=== PATIENT | male | born 1940 | race Caucasian/White ===

== ENCOUNTER 2020-07-19 01:37 | Inpatient (IN) ==
[2020-07-19] MEDS ORDERED: *HR* Atropine Sulfate 1 MG/10 ML SYRINGE IVP STA ×2 (01:56→07:33)
[2020-07-19 02:17] LABS: Basophils % 0.4 %; Eosinophils % 0.6 %; Hematocrit 44.8 % (37.5-50.1); Hemoglobin 14.3 g/dL (12.9-16.9); Immature Granulocytes % 0.1 % (0-4); Lymphocytes % 14.5 %; Mean Corpuscular HGB Conc 31.9 g/dL (31.6-35.5); Mean Corpuscular Hemoglobin 31.2 pg (28.0-33.3); Mean Corpuscular Volume 97.6 fL (83.0-100.0); Mean Platelet Volume 11.3 fL (9.4-12.4); Monocytes # 0.5 K/mcL (0.0-1.3); Monocytes % 6.3 %; Neutrophils # 5.5 K/mcL (1.6-8.9); Platelet Count 196 K/mcL (140-400); Red Blood Count 4.59 M/mcL (4.19-5.50); Red Cell Distribution Width 13.3 % (11.5-14.5); Segmented Neutrophils % 78.1 %; White Blood Count 7.1 K/mcL (4.3-11.1)
[2020-07-19 02:58] LABS: BUN/Creatinine Ratio 18 (6-26); Blood Urea Nitrogen 20 mg/dL (8-23); Calcium 8.8 mg/dL (8.6-10.3); Carbon Dioxide 24 mEq/L (23-29); Chloride 112 mEq/L (98-107); Glucose 114 mg/dL (70-105); Magnesium 2.1 mg/dL (1.6-2.6); Osmolality,Calculated 301 (280-300); Potassium 3.9 mEq/L (3.5-5.1); Sodium 144 mEq/L (136-145); Troponin I < 0.03 ng/mL (< 0.04); eGFR For African Americans > 60 (> 60); eGFR For Non-African Americans > 60 (> 60)
[2020-07-19 03:42] LABS: Adenovirus Not Detected (Not Detect); Bordetella Pertussis Not Detected (Not Detect); Chlamydophila pneumoniae Not Detected (Not Detect); Coronavirus 229E Not Detected (Not Detect); Coronavirus HKU1 Not Detected (Not Detect); Coronavirus NL63 Not Detected (Not Detect); Coronavirus OC43 Not Detected (Not Detect); Human Metapneumovirus Not Detected (Not Detect); Human Rhinovirus/Enterovirus Not Detected (Not Detect); Influenza A Subtype 2009 H1 Not Detected (Not Detect); Influenza B Not Detected (Not Detect); Mycoplasma pneumoniae Not Detected (Not Detect); Parainfluenza Virus 1 Not Detected (Not Detect); Parainfluenza Virus 2 Not Detected (Not Detect); Parainfluenza Virus 3 Not Detected (Not Detect); Parainfluenza Virus 4 Not Detected (Not Detect); Respiratory Syncytial Virus Not Detected (Not Detect); SARS-CoV-2 Not Detected (Not Detect)
[2020-07-19] MEDS ORDERED: Ondansetron ODT 4 MG TAB.RAPDIS SL PRN (05:31)
[2020-07-19] MEDS ORDERED: Naloxone 0.4 MG/ML INJ IVP PRN (05:31)
[2020-07-19] MEDS ORDERED: Perflutren Lipid Microsphere 1.3 ML in 0.9 % Sodium Chloride 8.7 ML IVP PRN (05:34)
[2020-07-19 06:07] LABS: Prothrombin Time 12.1 Seconds (9.4-12.1)
[2020-07-19 06:51] LABS: Thyroid Stimulating Hormone 5.057 mcIU/mL (0.340-5.600)
[2020-07-19] MEDS ORDERED: *HR* Atropine Sulfate 1 MG/10 ML SYRINGE ONE (07:43)
[2020-07-19 08:55] LABS: Bilirubin,Urine Negative (Negative); Blood,Urine Trace-intact (Negative); Clarity,Urine Clear (Clear); Color,Urine Yellow (Yellow); Glucose,Urine (UA) Normal (Normal); Ketones,Urine 15 mg/dL (Negative); Leukocyte Esterase,Urine Negative (Negative); Nitrite,Urine Negative (Negative); PH,Urine 5.5 pH Units (5.0-8.0); Protein,Urine 100 mg/dL (Neg-Trace); Specific Gravity,Urine >= 1.030 (1.010-1.025); Urobilinogen,Urine Normal (Normal)
[2020-07-19 09:10] LABS: Bacteria,Urine Few per hpf (None-Few); Mucus,Urine Few per lpf (None-Few); RBC,Urine 0-3 per hpf (0-3); WBC,Urine 0-3 per hpf (0-3)
[2020-07-19] MEDS: *HR* Atropine Sulfate 1 MG/10 ML SYRINGE IVP PRN ×3 (23:09→23:57)
[2020-07-20] MEDS: *HR* Atropine Sulfate 1 MG/10 ML SYRINGE IVP PRN ×3 (00:29→04:29)
[2020-07-20] MEDS ORDERED: *HR* Atropine Sulfate 1 MG/10 ML SYRINGE IVP STA (03:12)
[2020-07-20 05:15] LABS: Basophils % 0.2 %; Eosinophils % 0.2 %; Hematocrit 41.1 % (37.5-50.1); Hemoglobin 13.5 g/dL (12.9-16.9); Immature Granulocytes % 0.2 % (0-4); Lymphocytes # 0.9 K/mcL (0.6-4.6); Lymphocytes % 8.7 %; Mean Corpuscular HGB Conc 32.8 g/dL (31.6-35.5); Mean Corpuscular Hemoglobin 30.3 pg (28.0-33.3); Mean Corpuscular Volume 92.4 fL (83.0-100.0); Mean Platelet Volume 10.5 fL (9.4-12.4); Monocytes # 0.7 K/mcL (0.0-1.3); Monocytes % 6.8 %; Neutrophils # 8.5 K/mcL (1.6-8.9); Platelet Count 209 K/mcL (140-400); Red Blood Count 4.45 M/mcL (4.19-5.50); Red Cell Distribution Width 13.2 % (11.5-14.5); Segmented Neutrophils % 83.9 %; White Blood Count 10.1 K/mcL (4.3-11.1)
[2020-07-20 05:31] LABS: BUN/Creatinine Ratio 18 (6-26); Blood Urea Nitrogen 17 mg/dL (8-23); Calcium 8.5 mg/dL (8.6-10.3); Carbon Dioxide 23 mEq/L (23-29); Chloride 111 mEq/L (98-107); Cholesterol 157 mg/dL (< 200); Glucose 133 mg/dL (70-105); HDL Cholesterol 39 mg/dL (40-59); LDL Cholesterol,Calculated 100 mg/dL (< 100); Magnesium 1.9 mg/dL (1.6-2.6); Osmolality,Calculated 295 (280-300); Phosphorous 2.8 mg/dL (2.7-4.5); Potassium 3.9 mEq/L (3.5-5.1); Sodium 141 mEq/L (136-145); Triglycerides 90 mg/dL (< 150); eGFR For African Americans > 60 (> 60); eGFR For Non-African Americans > 60 (> 60)
[2020-07-20] MEDS ORDERED: *HR* Midazolam HCl 2 MG/2 ML VIAL ONE (08:58)
[2020-07-20] MEDS ORDERED: *HR* FentaNYL (PF) 100 MCG/2 ML VIAL ONE (08:58)
[2020-07-20] MEDS ORDERED: 0.9 % Sodium Chloride 500 ML ONE (08:59)
[2020-07-20] MEDS ORDERED: 0.9 % Sodium Chloride 1,000 ML ONE (10:20)
[2020-07-20] MEDS ORDERED: *HR* Midazolam HCl 2 MG/2 ML VIAL IVP PRN (11:30)
[2020-07-20] MEDS ORDERED: Ondansetron 4 MG/2 ML VIAL IVP PRN (11:30)
[2020-07-20] MEDS ORDERED: Morphine Sulfate 2 MG/ML SYRINGE IVP PRN (11:30)
[2020-07-20] MEDS ORDERED: *HR* LORazepam 2 MG/ML VIAL IVP ONE (13:20)
[2020-07-20] MEDS ORDERED: *HR* Succinylcholine 200 MG/10 ML VIAL IVP ONE (14:49)
[2020-07-20] MEDS ORDERED: Lidocaine -MPF 2% 5 ML VIAL SQ ONE (14:49)
[2020-07-20] MEDS ORDERED: *HR* Propofol 200 MG/20 ML VIAL IVP ONE (14:49)
[2020-07-20] MEDS ORDERED: Ondansetron 4 MG/2 ML VIAL IVPB ONE (14:49)
[2020-07-20] MEDS ORDERED: *HR* Rocuronium Bromide 50 MG/5 ML VIAL IVP ONE (14:49)
[2020-07-20] MEDS ORDERED: EPHEDrine 50 MG/ML VIAL IVP ONE (14:49)
[2020-07-20] MEDS ORDERED: Furosemide 20 MG/2 ML VIAL IVP ONE (18:35)
[2020-07-20] MEDS: Morphine Sulfate 2 MG/ML SYRINGE IVP PRN ×2 (19:57→23:58)
[2020-07-20] MEDS ORDERED: Haloperidol Lactate 5 MG/ML VIAL IVP ONE (20:18)
[2020-07-20] MEDS ORDERED: Ziprasidone 10 MG in Water for inj. (sterile) 0.5 ML IM ONE (21:15)
[2020-07-21 04:40] LABS: BUN/Creatinine Ratio 16 (6-26); Blood Urea Nitrogen 17 mg/dL (8-23); Calcium 8.4 mg/dL (8.6-10.3); Carbon Dioxide 23 mEq/L (23-29); Chloride 110 mEq/L (98-107); Glucose 131 mg/dL (70-105); Osmolality,Calculated 297 (280-300); Potassium 3.8 mEq/L (3.5-5.1); Sodium 142 mEq/L (136-145); eGFR For African Americans > 60 (> 60); eGFR For Non-African Americans > 60 (> 60)
[2020-07-21] MEDS: Morphine Sulfate 2 MG/ML SYRINGE IVP PRN (05:15)
[2020-07-21] MEDS ORDERED: Ziprasidone 10 MG in Water for inj. (sterile) 0.5 ML IM ONE (05:26)
[2020-07-21] MEDS ORDERED: *HR* LORazepam 2 MG/ML VIAL IVP ONE (11:17)
[2020-07-21] MEDS: Dexmedetomidine HCl 400 MCG/100 ML MLS IVC SCH ×2 (11:24→23:05)
[2020-07-22 03:52] LABS: Hematocrit 42.5 % (37.5-50.1); Mean Corpuscular HGB Conc 32.9 g/dL (31.6-35.5); Mean Corpuscular Hemoglobin 30.6 pg (28.0-33.3); Mean Platelet Volume 10.2 fL (9.4-12.4); Platelet Count 156 K/mcL (140-400); Red Blood Count 4.57 M/mcL (4.19-5.50); White Blood Count 9.3 K/mcL (4.3-11.1)
[2020-07-22 04:10] LABS: BUN/Creatinine Ratio 23 (6-26); Blood Urea Nitrogen 20 mg/dL (8-23); Calcium 8.6 mg/dL (8.6-10.3); Carbon Dioxide 25 mEq/L (23-29); Chloride 108 mEq/L (98-107); Glucose 96 mg/dL (70-105); Magnesium 1.9 mg/dL (1.6-2.6); Osmolality,Calculated 290 (280-300); Potassium 3.8 mEq/L (3.5-5.1); Sodium 139 mEq/L (136-145); eGFR For African Americans > 60 (> 60); eGFR For Non-African Americans > 60 (> 60)
[2020-07-22] MEDS: *HR* Enoxaparin 40 MG/0.4 ML SYRINGE SQ SCH (05:51)
[2020-07-22] MEDS ORDERED: 0.9 % Sodium Chloride 250 ML ONE (05:54)
[2020-07-22] MEDS: Acetaminophen 325 MG TABLET PO PRN ×2 (12:48→20:08)
[2020-07-22] MEDS: Morphine Sulfate 2 MG/ML SYRINGE IVP PRN (23:33)
[2020-07-23] MEDS ORDERED: Melatonin 3 MG TABLET PO PRN (03:32)
[2020-07-23] MEDS ORDERED: QUEtiapine Fumarate 25 MG TABLET PO SCH (03:45)
[2020-07-23] MEDS: *HR* Enoxaparin 40 MG/0.4 ML SYRINGE SQ SCH (05:51)
[2020-07-23 11:39] VITALS: BP 176/97
== END 2020-07-23 14:50 | disposition home or self-care (01) | DRG 242 ==
LOC: EMEROOARM 01:37 → 2NNU 01:37 → SUATTDRO 04:07 → 2NNU 05:03 → SUATTDRO 21:39
PROVIDERS: ADMIT Internal Medicine; ATTEND Internal Medicine

== ENCOUNTER 2020-07-23 21:17 | Observation (INO) ==
[2020-07-23 22:05] LABS: Basophils % 0.2 %; Eosinophils % 0.1 %; Hematocrit 45.1 % (37.5-50.1); Immature Granulocytes % 0.3 % (0-4); Lymphocytes # 0.8 K/mcL (0.6-4.6); Lymphocytes % 6.9 %; Mean Corpuscular HGB Conc 33.3 g/dL (31.6-35.5); Mean Corpuscular Volume 93.2 fL (83.0-100.0); Mean Platelet Volume 10.4 fL (9.4-12.4); Monocytes # 1.1 K/mcL (0.0-1.3); Monocytes % 9.7 %; Neutrophils # 9.5 K/mcL (1.6-8.9); Platelet Count 190 K/mcL (140-400); Red Blood Count 4.84 M/mcL (4.19-5.50); Red Cell Distribution Width 13.2 % (11.5-14.5); Segmented Neutrophils % 82.8 %; White Blood Count 11.5 K/mcL (4.3-11.1)
[2020-07-23 22:26] LABS: BUN/Creatinine Ratio 23 (6-26); Blood Urea Nitrogen 22 mg/dL (8-23); Carbon Dioxide 25 mEq/L (23-29); Chloride 107 mEq/L (98-107); Creatine Kinase 69 Units/L (30-223); Glucose 129 mg/dL (70-105); Osmolality,Calculated 297 (280-300); Potassium 3.9 mEq/L (3.5-5.1); Sodium 141 mEq/L (136-145); eGFR For African Americans > 60 (> 60); eGFR For Non-African Americans > 60 (> 60)
[2020-07-23 22:40] LABS: Thyroid Stimulating Hormone 3.017 mcIU/mL (0.340-5.600)
[2020-07-23 22:49] LABS: Amorphous Sediment,Urine Few per hpf (None-Few); Bacteria,Urine Few per hpf (None-Few); Bilirubin,Urine Negative (Negative); Blood,Urine Moderate (Negative); Clarity,Urine Turbid (Clear); Color,Urine Yellow (Yellow); Glucose,Urine (UA) 150 mg/dL (Normal); Hyaline Casts,Urine Few per lpf (None Seen); Ketones,Urine 20 mg/dL (Negative); Leukocyte Esterase,Urine Negative (Negative); Mucus,Urine Few per lpf (None-Few); Nitrite,Urine Negative (Negative); Protein,Urine >=300 mg/dL (Neg-Trace); RBC,Urine 0-3 per hpf (0-3); Specific Gravity,Urine 1.029 (1.010-1.025); Urobilinogen,Urine Normal (Normal)
[2020-07-23] MEDS ORDERED: Ondansetron ODT 4 MG TAB.RAPDIS SL PRN (23:02)
[2020-07-23] MEDS ORDERED: Naloxone 0.4 MG/ML INJ IVP PRN (23:02)
[2020-07-23] MEDS ORDERED: Mag Hydrox/Al Hydrox/Simeth 30 ML UDC PO PRN (23:02)
[2020-07-24 04:59] LABS: Hemoglobin 13.8 g/dL (12.9-16.9); Mean Corpuscular HGB Conc 32.9 g/dL (31.6-35.5); Mean Corpuscular Hemoglobin 31.1 pg (28.0-33.3); Mean Corpuscular Volume 94.6 fL (83.0-100.0); Mean Platelet Volume 10.6 fL (9.4-12.4); Platelet Count 186 K/mcL (140-400); Red Blood Count 4.44 M/mcL (4.19-5.50); Red Cell Distribution Width 13.2 % (11.5-14.5)
[2020-07-24 05:15] LABS: BUN/Creatinine Ratio 24 (6-26); Blood Urea Nitrogen 19 mg/dL (8-23); Calcium 8.5 mg/dL (8.6-10.3); Carbon Dioxide 24 mEq/L (23-29); Chloride 108 mEq/L (98-107); Glucose 130 mg/dL (70-105); Osmolality,Calculated 296 (280-300); Potassium 3.6 mEq/L (3.5-5.1); Sodium 141 mEq/L (136-145); eGFR For African Americans > 60 (> 60); eGFR For Non-African Americans > 60 (> 60)
[2020-07-24] MEDS: *HR* Heparin 5,000 UNIT/ML VIAL SQ SCH ×2 (05:36→17:19)
[2020-07-24] MEDS: amLODIPine 5 MG TABLET PO SCH (08:10)
[2020-07-24] MEDS: Furosemide 20 MG TABLET PO SCH (08:11)
[2020-07-24] MEDS: lisinopriL 20 MG TABLET PO SCH (08:11)
[2020-07-24] MEDS: QUEtiapine Fumarate 25 MG TABLET PO PRN (19:55)
[2020-07-25] MEDS: *HR* Heparin 5,000 UNIT/ML VIAL SQ SCH ×2 (05:40→16:54)
[2020-07-25] MEDS: amLODIPine 5 MG TABLET PO SCH (07:41)
[2020-07-25] MEDS: lisinopriL 20 MG TABLET PO SCH (07:41)
[2020-07-25] MEDS: Furosemide 20 MG TABLET PO SCH (07:41)
[2020-07-25] MEDS ORDERED: Acetaminophen 325 MG TABLET PO ONE (09:26)
[2020-07-25] MEDS ORDERED: 0.9 % Sodium Chloride 1,000 ML IVC SCH (09:30)
[2020-07-25] MEDS: QUEtiapine Fumarate 25 MG TABLET PO PRN (23:28)
[2020-07-25] MEDS: Acetaminophen 325 MG TABLET PO PRN (23:28)
[2020-07-26] MEDS: *HR* Heparin 5,000 UNIT/ML VIAL SQ SCH ×2 (05:13→18:17)
[2020-07-26] MEDS: lisinopriL 20 MG TABLET PO SCH (09:22)
[2020-07-26] MEDS: amLODIPine 5 MG TABLET PO SCH (09:22)
[2020-07-26] MEDS: Furosemide 20 MG TABLET PO SCH (09:22)
[2020-07-27] MEDS: *HR* Heparin 5,000 UNIT/ML VIAL SQ SCH (05:31)
[2020-07-27] MEDS: Acetaminophen 325 MG TABLET PO PRN (06:30)
[2020-07-27] MEDS: Furosemide 20 MG TABLET PO SCH (09:40)
[2020-07-27] MEDS: amLODIPine 5 MG TABLET PO SCH (09:40)
[2020-07-27] MEDS: lisinopriL 20 MG TABLET PO SCH (09:41)
[2020-07-27 16:14] VITALS: BP 126/78
[2020-07-27 17:22] LABS: Adenovirus Not Detected (Not Detect); Bordetella Pertussis Not Detected (Not Detect); Chlamydophila pneumoniae Not Detected (Not Detect); Coronavirus 229E Not Detected (Not Detect); Coronavirus HKU1 Not Detected (Not Detect); Coronavirus NL63 Not Detected (Not Detect); Coronavirus OC43 Not Detected (Not Detect); Human Metapneumovirus Not Detected (Not Detect); Human Rhinovirus/Enterovirus Not Detected (Not Detect); Influenza A Subtype 2009 H1 Not Detected (Not Detect); Influenza B Not Detected (Not Detect); Mycoplasma pneumoniae Not Detected (Not Detect); Parainfluenza Virus 1 Not Detected (Not Detect); Parainfluenza Virus 2 Not Detected (Not Detect); Parainfluenza Virus 3 Not Detected (Not Detect); Parainfluenza Virus 4 Not Detected (Not Detect); Respiratory Syncytial Virus Not Detected (Not Detect); SARS-CoV-2 Not Detected (Not Detect)
== END 2020-07-27 19:10 ==
LOC: 3BNU 21:17 → EMEROOARM 21:17 → SUATTDRO 23:03 → 3BNU 23:36
PROVIDERS: ADMIT Internal Medicine; ATTEND Internal Medicine